=== PATIENT | female | born 1950 | race Caucasian/White ===

== ENCOUNTER 2018-11-09 07:02 | Outpatient (CLI) | payer MEDICARE, OTHER ==
[~2018-11-09] VITALS: Ht 160 cm; Wt 76.2 kg
[2018-11-09] VITALS (12 sets, daily range): BP systolic 106–153; BP diastolic 56–75
[2018-11-09 07:48] LABS: BASO % 1 % (0-3); EOS # 0.1 x10^3/uL (0.0-0.7); EOS % 1 % (0-3); HEMATOCRIT 37.3 % (36.0-47.0); HEMOGLOBIN 13.1 g/dL (12.0-15.5); LYMPH # 1.4 x10^3/uL (1.0-4.8); LYMPH % 24 % (24-48); MEAN CORPUSCULAR HEMOGLOBIN 33 pg (25-35); MEAN CORPUSCULAR HGB CONC 35 g/dL (31-37); MEAN CORPUSCULAR VOLUME 95 fL (79-100); MONO # 0.5 x10^3/uL (0.0-1.1); MONO % 8 % (0-9); NEUT # 3.9 x10^3/uL (1.8-7.7); NEUT % 67 % (31-73); PLATELET COUNT 235 x10^3/uL (140-400); RED BLOOD COUNT 3.94 x10^6/uL (3.50-5.40); RED CELL DISTRIBUTION WIDTH 12.3 % (11.5-14.5); WHITE BLOOD COUNT 5.9 x10^3/uL (4.0-11.0)
[2018-11-09] MEDS ORDERED: TELM1TAB26 PO (07:48)
[2018-11-09] MEDS ORDERED: VENTOLIN HFA18 GM INH (07:48)
[2018-11-09 07:53] LABS: PROTHROMBIN TIME PATIENT 12.5 SEC (11.7-14.0)
[2018-11-09] MEDS ORDERED: LIDOCAINE WITH 8.4% SOD BICARB 3 ML DISP.SYRIN. ONE (08:13)
[2018-11-09] MEDS ORDERED: fentaNYL PF VIAL 100 MCG/2 ML VIAL ONE (08:43)
[2018-11-09] MEDS ORDERED: MIDAZOLAM HCL/PF 2 MG/2 ML VIAL. ONE (08:43)
[2018-11-09] MEDS ORDERED: fentaNYL PF VIAL 100 MCG/2 ML VIAL IV ONE (09:00)
[2018-11-09] MEDS ORDERED: LIDOCAINE WITH 8.4% SOD BICARB 3 ML DISP.SYRIN. IJ ONE (09:00)
[2018-11-09] MEDS ORDERED: MIDAZOLAM HCL/PF 2 MG/2 ML VIAL. IV ONE (09:00)
--- NOTE | 2018-11-09 09:18 | PDOC ---
MODERATE SEDATION ASSESSMENT RISKS/ALTERNATIVES Risks/Alternatives Risks and alternatives of this type of sedation and procedure discussed with: RISK/ALTERNATIVES: Patient H & P ON CHART H & P H & P on chart and reviewed for co-morbid conditions and appropriate labs. H&P ON CHART: Yes STATUS PREG STATUS ASSESSED: Yes MEDS/ALLERGIES REVIEWED Meds/Allergies Reviewed Medications and Allergies including time and route of recently administered narcotics and sedatives. MEDS/ALLERGIES REVIEWED: Yes ASA RATING ASA RATING: II AIRWAY ASSESSMENT Airway Assessment Airway patency, oral function limitations, presence of caps, crowns, dentures, partials, and ability to extend neck assessed. AIRWAY ASSESSMENT: Yes MALLAMPATI SCORE MALLAMPATI SCORE: II PRE-SEDATION ASSESSMENT PRE-SEDATION ASSESSMENT: Yes TONJA MACHADO MD Nov 09, 2018 09:18
--- NOTE | 2018-11-09 09:18 | PDOC ---
BRIEF OPERATIVE NOTE Pre-Op Diagnosis right lung masses Post-Op Diagnosis same Procedure Performed CT biopsy of dominant mass Surgeon Henry Anesthesia Type: Conscious Sedation Specimens Obtained 7 x 20g cores Complications No immediate TONJA MACHADO MD Nov 09, 2018 09:18
--- NOTE | 2018-11-09 09:19 | PDOC1 ---
History and Physical Date of Procedure Date of Admission History of Present Illness Reason for Visit multiple lung masses Past Medical History Past Medical History see nursing assessment Current Medications Current Medications Current Medications Lidocaine/Sodium Bicarbonate (Buffered Lidocaine 1%) 3 ml STK-MED ONCE .ROUTE ; Start 11/09/18 at 08:13; Stop 11/09/18 at 08:13; Status DC Midazolam HCl (Versed) 2 mg STK-MED ONCE .ROUTE ; Start 11/09/18 at 08:43; Stop 11/09/18 at 08:43; Status DC Fentanyl Citrate (Fentanyl 2ml Vial) 100 mcg STK-MED ONCE .ROUTE ; Start 11/09/18 at 08:43; Stop 11/09/18 at 08:43; Status DC Lidocaine/Sodium Bicarbonate (Buffered Lidocaine 1%) 11 ml 1X ONCE IJ Last administered on 11/09/18at 09:12; Start 11/09/18 at 09:00; Stop 11/09/18 at 09:03; Status DC Midazolam HCl (Versed) 2 mg 1X ONCE IV Last administered on 11/09/18at 09:12; Start 11/09/18 at 09:00; Stop 11/09/18 at 09:03; Status DC Fentanyl Citrate (Fentanyl 2ml Vial) 75 mcg 1X ONCE IV Last administered on 11/09/18at 09:12; Start 11/09/18 at 09:00; Stop 11/09/18 at 09:03; Status DC Active Scripts Active Reported Ventolin Hfa Inhaler (Albuterol Sulfate) 18 Gm Hfa.aer.ad 2 Puff INH Q4HRS PRN Telmisartan-Hctz 80-25 Mg Tab (Telmisartan/Hydrochlorothiazid) 1 Each Tablet 1 Each PO DAILY Allergies Allergies: Coded Allergies: No Known Drug Allergies (Unverified , 11/09/18) Physical Exam Vital Signs Vital Signs Date Time Temp Pulse Resp B/P (MAP) Pulse Ox O2 Delivery O2 Flow Rate FiO2 11/09/18 09:13 84 11 97 Nasal Cannula 2.0 11/09/18 08:28 98.1 131/64 (86) 98.1 Other see nursing assessment Assessment Assessment multiple lung masses Plan Plan CT biopsy of dominant mass TONJA MACHADO MD Nov 09, 2018 09:19
--- NOTE | 2018-11-09 11:45 | NUR ---
Discharge Note: ALLY JEFF Discharge instructions and discharge home medications reviewed with Patient and a copy given. All questions have been answered and understanding verbalized. The following instructions and handouts were given: moderate sedation and post lung biopsy Discontinued lines and drains: Peripheral IV intact. Patient discharged to Home or Self Care withFamily Membervia Wheelchair
--- NOTE | 2018-11-09 17:03 | RAD ---
EXAM: CHEST 1 VIEW History: Right lung mass COMPARISON: CT biopsy from same day exam. TECHNIQUE: Single portable radiograph of the chest Findings/ impression: The cardiac silhouette is unremarkable. Opacity identified in the right apical lung likely known lung mass . Faint airspace opacities identified in the bilateral lungs likely atelectasis or infiltrates. Calcified pleural plaques identified in the bilateral lungs. Electronically signed by: Preet Bush MD (11/09/2018 5:01 PM) [facility]
--- NOTE | 2018-11-10 14:28 | RAD ---
Procedure: CT-guided right lung biopsy Clinical Indication: 68-year-old with multiple right lung nodules Sedation: Conscious sedation was administered with a total intraprocedural iyei-ko-cheo time of 12 minutes. The patient was monitored by a qualified independent observer throughout the time of sedation. Please refer to the medical record for exact doses of medications utilized to achieve moderate sedation. Antibiotics: None Sterility: The procedure was performed in its entirety using appropriate elements of sterile technique. Consent: The procedure was explained in its entirety to the patient or the patients designated financial sales representative by a member of the treatment team, including a discussion of the risks, benefits and commonly accepted alternatives to the procedure, as well as the expected consequences of no therapy whatsoever. Discussion of the risks included, but was not limited to, those that are most frequent and those that are rare but possibly severe or life-threatening, as well as the possibility of unforeseen complications. Technique and Findings: Following informed consent, the patient was prepped and draped in usual sterile fashion. Preliminary CT scan of the area of interest was performed. 1% lidocaine was used to achieve local anesthesia over the area of interest. A small dermatotomy was made. Under periodic CT surveillance, a 19-gauge needle was advanced towards the targeted lesion and 4 separate 20-gauge core biopsy specimens were obtained. The needle guide was then repositioned towards a second aspect of the target lesion and 3 additional core biopsy specimens were obtained. All specimens were divided between formalin and saline for microbiologic analysis. A blood patch was applied as the needle guide was removed and hemostasis was achieved with manual compression. Complications: No immediate Impression: 1. CT-guided right lung biopsy as described. PQRS Compliance Statement: One or more of the following individualized dose reduction techniques were utilized for this examination: 1. Automated exposure control 2. Adjustment of the mA and/or kV according to patient size 3. Use of iterative reconstruction technique
--- NOTE | 2018-11-10 15:07 | PATHOLOGY ---
[facility] Accession Number: [id number] . 01 Material submitted: . lung - RIGHT LUNG BIOPSY. Modifiers: right . 01 Clinical history: . Right lung mass . 02 Diagnosis: Lung tissue, right lung mass needle biopsies: - SQUAMOUS CELL CARCINOMA, MODERATELY DIFFERENTIATED. SEE COMMENT. ([facility] 11/10/2018) [facility] 11/10/2018 1421 Local . 02 Comment: Sections of the right lung mass needle biopsy show extensive replacement of lung parenchyma by a malignant epithelial neoplasm. The tumor cells are present in irregular solid nests which infiltrate an inflamed reactive desmoplastic stroma. The tumor cells have a polygonal squamoid appearance and possess variable amounts of eosinophilic keratinized cytoplasm. There are focal dyskeratotic cells. The tumor cells show moderate nuclear pleomorphism. There are mitotic figures present. There is focal tumor necrosis. The morphologic findings are supportive of the diagnosis of an invasive moderately differentiated squamous cell carcinoma. The case is also examined by Dr. Lemus, who concurs with the diagnosis. The results are reported to Dr. Braswell on 11/10/2018 at 10:30AM. (JPM[facility] 11/10/2018) . 02 Electronically signed: . Carlos Jarquin MD, Pathologist NPI- [id number] . 01 Gross description: . The specimen is received in formalin, labeled "Alicia Yates, right lung tissue" and consists of multiple delicate needle cores of mata tissue measuring 2.1 x 0.9 x 0.1 cm in aggregate which are entirely submitted in A1. (SDY; 11/09/2018) [facility] 11/09/2018 1703 Local . 02 Pathologist provided ICD-10: C34.91 . 02 CPT . 211578 Specimen Comment: A courtesy copy of this report has been sent to Specimen Comment: [phone], , . Specimen Comment: Report sent to ,DR BRASWELL / DR WOODALL Specimen Comment: Report sent to Specimen Comment: A duplicate report has been generated due to demographic updates. Performed at: 01 [facility] [address] [facility] [address], [place] [id number] MD Gavin Tena MD Phone: [phone] Performed at: 02 [facility] [address] [place], [place] [id number] MD Carlos Jarquin MD Phone: [phone]
== END 2018-11-09 11:45 | disposition home or self-care (01) ==
LOC: INTRAD 07:02
PROVIDERS: ATTEND Internal Medicine Critical Care Medicine
DX: C34.91 Malignant neoplasm of unspecified part of right bronchus or lung (principal); Z79.01 Long term (current) use of anticoagulants
CPT/HCPCS: 32405; 36415; 71045; 77012; 85025; 85610; 85730; 87071; 87075; 99152; J2250; J3010; 88305; 88360; 88381